=== PATIENT | female | born 1990 | race Caucasian/White ===

== ENCOUNTER 2016-09-27 09:09 | Emergency (ER) | payer OTHER ==
[~2016-09-27] VITALS: Ht 160 cm; Wt 64.9 kg
[~2016-09-27 09:09] MED LIST: ACET-1256 PO; OXYC1TAB3 PO
[2016-09-27 09:14] VITALS: TEMP 37.1; Ht 160 cm; Wt 64.9 kg
[2016-09-27] MEDS ORDERED: CEFTRIAXONE SOD INJ 1 GM ADDVIAL IV STA (09:46)
[2016-09-27] MEDS ORDERED: SODIUM CHLORIDE 0.9% 1000ML 1,000 ML IV ONE (09:46)
[2016-09-27] MEDS ORDERED: SODIUM CHLORIDE 0.9% 1000ML 1,000 ML IV STA (09:46)
--- NOTE | 2016-09-27 10:08 | EMERGENCY ROOM VISIT NOTE ---
History Report prepared by Chip: Masha Glass Under the Supervision of: Dr. Jose Ortiz M.D. First contact with patient: 09:18 Chief Complaint: URINARY SYMPTOMS Stated Complaint: UTI,KIDNEY INFECTION History of Present Illness The patient is a 26 year old female who presents to the Emergency Room with complaints of persistent urinary symptoms that began Friday. She currently rates her discomfort as a 7/10 in severity. The patient states that she has a history of UTIs, noting that she normally does not treat her infections with antibiotics and states that they normally go away on their own. She states that she started with urinary urgency and dysuria on Friday. The patient states that she noticed right flank pain last evening and states that her urinary urgency and dysuria worsened. She states that her flank pain is sharp and states that it is worsened with movement or bending over. The patient states that her pain woke her up out of sleep this morning. She states that she tried taking Ibuprofen without relief of her symptoms. The patient notes cloudy urine, but denies any hematuria. She states that she has felt feverish and notes chills. The patient notes a history of a tubal ligation and four sections. She states that she has been sexually active with the same person for the past 8 years. The patient denies any pain or swelling to her legs, chest pain, shortness of breath, or recent trauma. She states that she is a smoker. Source of History: patient, spouse/significant other Onset: Friday Position: other (global) Symptom Intensity: 7/10 Quality: other (urinary symptoms) Timing: worsening, other (persistent) Associated Symptoms: + chills, + fevers (subjective), + urinary symptoms ( dysuria, urinary urgency), No SOB, No chest pain Note: Associated Symptoms: right flank pain Review of Systems See HPI for pertinent positives & negatives. A total of 10 systems reviewed and were otherwise negative. Past Medical & Surgical Medical Problems: (1) Migraine Unspecified W/O Intractable Migraine (2) Prev Delivry W/ Or W/O Ment Antepart Cond Old medical records were reviewed. Nurse's notes were reviewed and I agree with. Family History Diabetes mellitus Heart disease Hypertension Social History Smoking Status: Current Every Day Smoker Alcohol Use: none Drug Use: none Marital Status: in relationship Housing Status: lives with family Occupation Status: unemployed Current/Historical Medications Scheduled Acetaminophen (Tylenol), 500-1,000 MG PO Q6 Cefdinir (Omnicef), 1 CAP PO BID Ibuprofen Tab (Advil), 400-600 MG PO Q6H Allergies Coded Allergies: No Known Allergies (Verified , NONE, 11/19/15) Physical Exam Vital Signs Date Time Temp Pulse Resp B/P Pulse Ox O2 Delivery O2 Flow Rate FiO2 09/27/16 13:08 87 24 106/60 100 09/27/16 12:32 78 09/27/16 12:14 83 16 94/67 100 Room Air 09/27/16 10:46 79 18 110/64 100 Room Air 09/27/16 09:14 37.1 101 18 107/64 100 Room Air Physical Exam General: Well developed well nourished, non-ill appearing, young female, in no acute distress, breathing comfortably on room air. Normal speech HEENT: Normal cephalic atraumatic. Pupils are equal round and reactive to light. Sclerae anicteric. Extraocular movements are intact. Oropharynx is pink with moist mucous membranes. No swelling of the mouth lips or tongue. Neck: Supple with a midline trachea. No meningeal signs or stiffness, no JVD or bruits. No Stridor. Chest: Clear to auscultation bilaterally. No wheezes or rhonchi. No increased work of breathing. Heart: regular rate and rhythm. Abdomen: Mild tenderness in the suprapubic area. No rebound, guarding or rigidity noted. Extremities: No cyanosis clubbing or edema. No calf tenderness or assymetry Spine/Back. Mild tenderness in the right flank. Skin: Good turgor without rashes. Neurologic exam: Cranial nerves two through 12 are intact. Motor and sensation are intact and symmetrical throughout. Medical Decision & Procedures Laboratory Results 09/27/16 09:50 Red Blood Count 4.54, Mean Corpuscular Volume 58.8, Mean Corpuscular Hemoglobin 16.1, Mean Corpuscular Hemoglobin Concent 27.3, Mean Platelet Volume 9.6, Neutrophils (%) (Auto) 70.9, Lymphocytes (%) (Auto) 17.1, Monocytes (%) (Auto) 10.7, Eosinophils (%) (Auto) 0.7, Basophils (%) (Auto) 0.5, Neutrophils # (Auto ) 5.98, Lymphocytes # (Auto) 1.44, Monocytes # (Auto) 0.90, Eosinophils # (Auto ) 0.06, Basophils # (Auto) 0.04 09/27/16 09:50 Test 09/27/16 09:40 09/27/16 09:50 Urine Color YELLOW Urine Appearance CLOUDY (CLEAR) Urine pH 7.0 (4.5-7.5) Urine Specific [place] 1.013 (1.000-1.030) Urine Protein 1+ (NEG) Urine Glucose (UA) NEG (NEG) Urine Ketones NEG (NEG) Urine Occult Blood 2+ (NEG) Urine Nitrite NEG (NEG) Urine Bilirubin NEG (NEG) Urine Urobilinogen NEG (NEG) Urine Leukocyte Esterase LARGE (NEG) Urine WBC (Auto) >30 /hpf (0-5) Urine RBC (Auto) >30 /hpf (0-4) Urine Hyaline Casts (Auto) 1-5 /lpf (0-5) Urine Epithelial Cells (Auto) >30 /lpf (0-5) Urine Bacteria (Auto) 3+ (NEG) White Blood Count 8.43 K/uL (4.8-10.8) Red Blood Count 4.54 M/uL (4.2-5.4) Hemoglobin 7.3 g/dL (12.0-16.0) Hematocrit 26.7 % (37-47) Mean Corpuscular Volume 58.8 fL (80-100) Mean Corpuscular Hemoglobin 16.1 pg (25-34) Mean Corpuscular Hemoglobin Concent 27.3 g/dl (32-36) Platelet Count 326 K/uL (130-400) Mean Platelet Volume 9.6 fL (7.4-10.4) Neutrophils (%) (Auto) 70.9 % Lymphocytes (%) (Auto) 17.1 % Monocytes (%) (Auto) 10.7 % Eosinophils (%) (Auto) 0.7 % Basophils (%) (Auto) 0.5 % Neutrophils # (Auto) 5.98 K/uL (1.4-6.5) Lymphocytes # (Auto) 1.44 K/uL (1.2-3.4) Monocytes # (Auto) 0.90 K/uL (0.11-0.59) Eosinophils # (Auto) 0.06 K/uL (0-0.5) Basophils # (Auto) 0.04 K/uL (0-0.2) RDW Standard Deviation 42.3 fL (36.4-46.3) RDW Coefficient of Variation 19.7 % (11.5-14.5) Immature Granulocyte % (Auto) 0.1 % Immature Granulocyte # (Auto) 0.01 K/uL (0.00-0.02) Hypochromasia PRESENT Poikilocytosis PRESENT Microcytosis PRESENT Anion Gap 8.0 mmol/L (3-11) Est Creatinine Clear Calc Drug Dose 115.0 ml/min Estimated GFR () 139.3 Estimated GFR (Non- 120.2 BUN/Creatinine Ratio 10.5 (10-20) Calcium Level 8.4 mg/dl (8.5-10.1) Iron Level 6 mcg/dl (35-150) Total Iron Binding Capacity 448 mcg/dl (250-450) Transferrin 322 mg/dl (200-360) Transferrin % Saturation 1 % (15-50) Ferritin 1.5 ng/ml (8.0-388.0) Human Chorionic Gonadotropin, Qual NEG (NEG) Laboratory studies as stated above per my review. Medications Administered Medications (Trade) Dose Ordered Sig/Patrick Route Start Time Stop Time Status Last Admin Dose Admin Sodium Chloride 1,000 ml @ 999 mls/hr Q1H1M STAT IV 09/27/16 09:46 09/27/16 10:46 DC 09/27/16 09:55 999 MLS/HR Sodium Chloride (Nss 1000ml) 1,000 ml @ 200 mls/hr Q5H ONCE IV 09/27/16 09:46 09/27/16 13:23 DC 09/27/16 10:46 200 MLS/HR Ceftriaxone Sodium (Rocephin Inj) 1 gm NOW STAT IV 09/27/16 09:46 09/27/16 09:49 DC 09/27/16 09:55 1 GM ED Course 0920: Past medical records reviewed. The patient was evaluated in room B11B, and a complete history and physical examination were performed by the medical student. 0938: Past medical records reviewed. The patient was evaluated in room B11B, and a complete history and physical examination were performed. 0946: Ordered Rocephin Inj 1 gm IV, Sodium Chloride 1000 ml @ 200 mls/hr IV, Sodium Chloride 1000 ml @ 999 mls/hr IV. 1121: I reevaluated the patient and she is feeling okay. Her hemoglobin is 7.1. The patient denies any rectal bleeding, declines rectal exam or being a vegetarian. She states that she has been weak and losing weight recently. 1138: I reevaluated the patient and I discussed the treatment plan with her. The [facility] hospitalist team will be consulted regarding the patient. 1209: I discussed the patients case with Rich Bourgeois. He is going to work on getting the patient follow up outside. 1219: I reevaluated the patient and she is in agreement with the treatment plan. 1235: Dr. Lagunas scheduled a follow up appointment with Rich for the patient on Friday. 1256: I reevaluated the patient and she is doing well. She is updated on the treatment plan and is in agreement. She is ready to go home and follow up on Friday. Medical Decision Differentials include, but are not limited to; UTI, pyelonephritis, appendicitis , kidney stone. This patient comes in as described above. She was placed in room B 11. She has symptoms which are consistent with UTI probably early pyelonephritis. She is nontoxic. IV access established and she was given Rocephin 1 g IV. Urinalysis does suggest UTI. She's had no white count or fever to suggest infection or sepsis. She's had no significant electrolyte or metabolic abnormalities. She was found to have a low hemoglobin 7.3 and looking back to the charge does run anemic but not this anemic. She usually is in the 8 range. She declined a rectal exam but has no history of GI bleeding. She does have a microcytic anemia most likely is iron deficient. She is not a vegetarian. She tells me does have a history of iron deficiency. She has had some mild weakness and tiredness lately but this is been non-acute. I did discuss case with Dr. Lagunas and he felt that she could be evaluated as an outpatient as is no evidence of acute bleed. I will send her home on Omnicef. They have given appointment Friday morning to be seen and Rich. I talked the patient and her fianc and they will deftly follow-up. I encouraged to return to the weekend if: fever or chills, worsening of symptoms, lightheadedness or dizziness , any new problems concerns. They're happy the plan and discharged to home. Consults Time Called: 1137 Consulting Physician: Rich Bourgeois Returned Call: 1206 I discussed the patients case with Rich Bourgeois. He is going to work on getting the patient follow up outside. Impression Primary Impression: Pyelonephritis Additional Impression: Anemia Scribe Attestation The scribe's documentation has been prepared under my direction and personally reviewed by me in its entirety. I confirm that the note above accurately reflects all work, treatment, procedures, and medical decision making performed by me. Departure Information Dispostion Home / Self-Care Prescriptions Cefdinir (OMNICEF) 300 Mg Cap 1 CAP PO BID for 10 Days, #20 CAP Prov: Jose Ortiz M.D. 09/27/16 Referrals No Doctor, Assigned (PCP) Forms HOME CARE DOCUMENTATION FORM, IMPORTANT VISIT INFORMATION Patient Instructions My [facility] Additional Instructions Rest Drink plenty of fluids Use Omnicef 300 milligrams twice a day for 10 days For pain, may use ibuprofen 400 mg every 6 hours or Tylenol/acetaminophen 500 mg every 6 hours Do not take Tylenol/acetaminophen with any other medications that contain Tylenol in them Do not exceed the [id number] recommended dosages for these meds Return if: Fever or chills, worsening symptoms, increasing pain, blood or black colored stool, lightheadedness or dizziness, any new problems concerns Follow-up with your doctor on Friday for recheck. Keep the appointment that was made for you Problem Qualifiers
[2016-09-27 10:22] LABS: BUN/CREATININE RATIO 10.5 (10-20); CALCIUM 8.4 mg/dl (8.5-10.1); CREATININE 0.66 mg/dl (0.60-1.20); POTASSIUM 3.5 mmol/L (3.5-5.1)
[2016-09-27 10:32] LABS: URINE APPEARANCE CLOUDY (CLEAR); URINE BILIRUBIN NEG (NEG); URINE COLOR YELLOW; URINE EPITHELIAL CELL AUTO >30 /lpf (0-5); URINE NITRITE NEG (NEG); URINE SPECIFIC GRAVITY 1.013 (1.000-1.030); UROBILINOGEN NEG (NEG)
[2016-09-27 10:41] LABS: MANUAL MICROSCOPIC REQUIRED? NO; REVIEW REQ? NO
[2016-09-27 10:52] LABS: BASO % 0.5 %; BASO ABS # 0.04 K/uL (0-0.2); COMPLETE YES; EOS % 0.7 %; HEMATOCRIT 26.7 % (37-47); HYPOCHROMIA PRESENT; IG% 0.1 %; LYMPH % 17.1 %; LYMPH ABS # 1.44 K/uL (1.2-3.4); MEAN CELL VOLUME 58.8 fL (80-100); MEAN CORPUSCULAR HEMOGLOBIN 16.1 pg (25-34); MEAN CORPUSCULAR HGB CONC 27.3 g/dl (32-36); MEAN PLATELET VOLUME 9.6 fL (7.4-10.4); MICROCYTOSIS PRESENT; MONO % 10.7 %; NEUT % 70.9 %; PLATELET COUNT 326 K/uL (130-400); POIKILOCYTOSIS PRESENT; RED BLOOD COUNT 4.54 M/uL (4.2-5.4); WHITE BLOOD COUNT 8.43 K/uL (4.8-10.8)
[2016-09-27 10:53] LABS: PREG INTERNAL NEGATIVE QC NEG CLEAR BACKGROUND; PREG INTERNAL POSITIVE QC POS CONTROL LINE
[2016-09-27] MEDS ORDERED: CEFD300C2 PO (12:53)
[2016-09-27 13:08] VITALS: BP 106/60; PULSE 87; O2SAT 100
[2016-09-27 13:32] LABS: FERRITIN 1.5 ng/ml (8.0-388.0)
--- NOTE | 2016-09-28 08:15 | Progress Note ---
Progress Note Case discussed with Dr. Ortiz 09/27. 26 YO female with chronic anemia, Hgb 8-9 in 2012 - 2013. Presented to ED with urinary symptoms. No fever. No signs of sepsis. Hgb noted to be 7.3. MCV 59. Fe levels very low. No gross GI bleeding or heavy menses. Does not meet criteria of transfusion at this time, but will need outpatient follow-up for further evaluation and management. Does not need to be admitted for UTI. Arrangements made for follow-up in [facility] with Dr. Call on Friday09/30/16 at 11:10 AM. .
[2017-01-26] MEDS ORDERED: FRRS300 PO (14:49)
== END 2016-09-27 13:09 | disposition home or self-care (01) ==
LOC: C.EDB 09:10
DX: N12 Tubulo-interstitial nephritis, not specified as acute or chronic (principal); D64.9 Anemia, unspecified; G43.909 Migraine, unspecified, not intractable, without status migrainosus; F17.210 Nicotine dependence, cigarettes, uncomplicated

== ENCOUNTER 2017-01-18 14:55 | Emergency (ER) | payer OTHER ==
[~2017-01-18] VITALS: Ht 157.5 cm; Wt 63.0 kg
[~2017-01-18 14:55] MED LIST changes: -OXYC1TAB3 PO
[2017-01-18 15:05] VITALS: TEMP 37.5; Ht 157.5 cm; Wt 63.0 kg
[2017-01-18] MEDS ORDERED: ACET325T96 PO (15:15)
[2017-01-18] MEDS ORDERED: PENI500T2 PO (15:30)
[2017-01-18] MEDS ORDERED: HYDR-5688 PO (15:30)
--- NOTE | 2017-01-18 15:31 | EMERGENCY ROOM VISIT NOTE ---
ED Visit Note First contact with patient: 15:14 CHIEF COMPLAINT: Left lower dental pain times one day HISTORY OF PRESENT ILLNESS: Patient is a 26-year-old white female who presents to emergency department for evaluation of left lower dental pain. She reports that she has multiple teeth that are in various states of decay. She has had multiple fillings by her dentist but they eventually fail and she has been referred to Dr. Moore in [place] for complete extraction. She has been unable to keep the appointments due to transportation and childcare issues. She reports the left lower molar in question has been decayed and cracked for some time. She states that a new piece of the tooth broke off just yesterday which caused increased pain. She notes slight swelling in the left cheek. She's been taking ibuprofen for discomfort. She denies any blood, pus or foul tasting fluid in her mouth. No difficulty breathing or swallowing. She's not been on any antibiotics for her teeth recently. He denies fever. REVIEW OF SYSTEMS: Review of systems as per HPI. All other systems reviewed were negative. At least 6 systems reviewed. PMH: Electronic medical records are reviewed and summarized as above/below. See Problem List. SOCIAL HISTORY: Patient lives at home. Smoker. PHYSICAL EXAM: Vital Signs: Reviewed Nurse's notes. CONSTITUTIONAL: Patient is a well-appearing 26-year-old white female who is awake and alert and in no acute distress. Vital signs are stable. EARS: Tympanic membranes intact, not inflamed, have normal contour. External canals clear. MOUTH: Overall the patient has poor dentition. She is status post multiple extractions. There are multiple teeth with gross dental decay and obvious dental caries. The left lower molar in question is fractured, grossly carious, with exposed pulp. It is tender to percussion. There is slight swelling along the gumline although no focal abscess. Mucous membranes moist, no lesions, tongue and gums appear normal. THROAT: No pharyngeal injection, exudates, or tonsillar hypertrophy. Airway is patent. No trismus noted. FACE: No facial swelling is appreciated. No cellulitic changes. NECK: No lymphadenopathy . ED course: The patient was seen and evaluated as above. Her old records were reviewed. She is increased dental pain from a grossly carious tooth. There is no evidence for Valdo's angina, facial cellulitis or drainable abscess. She' ll be placed on antibiotics was given a prescription for [place] for pain. She was strongly encouraged to make and keep the appointment with the oral surgeon for definitive care and management. She expressed understanding of this and was agreeable. Patient was reviewed in the [facility] Prescription Drug Monitoring Program, and there were no red flags noted. Medical Reconciliation: I attest that I have personally reviewed the patient's current medication list. Blood pressure screening: Patient was found to have normal blood pressure on screening and does not require follow-up. Problem List Medical Problems: (1) Anemia Status: Resolved (2) Chest wall injury Status: Resolved (3) Chest wall injury Status: Resolved (4) Migraine Unspecified W/O Intractable Migraine Status: Chronic (5) Odontalgia Status: Resolved (6) Pain, dental Status: Resolved (7) Pyelonephritis Status: Resolved (8) Syncope Status: Resolved (9) Upper back pain Status: Resolved Surgical Problems: (1) Prev Delivry W/ Or W/O Ment Antepart Cond Status: Resolved Current/Historical Medications Scheduled Acetaminophen Tab (Tylenol), 2-3 MG PO 4-6HRS PRN Ibuprofen Tab (Advil), 400-600 MG PO Q6H Penicillin V Potassium (Veetids), 500 MG PO QID Scheduled PRN Hydrocodone/Acetaminophen 5MG/325MG ([place] 5MG/325MG), 1-2 TABLETS PO Q4 PRN for Pain Allergies Coded Allergies: No Known Allergies (Verified , NONE, 11/19/15) Vital Signs Date Time Temp Pulse Resp B/P (MAP) Pulse Ox O2 Delivery O2 Flow Rate FiO2 01/18/17 15:05 37.5 107 18 113/74 98 Room Air Departure Information Impression Primary Impression: Periapical abscess Prescriptions Hydrocodone/Acetaminophen 5MG/325MG ([place] 5MG/325MG) Tab 1-2 TABLETS PO Q4 Y for Pain, #20 TAB For Initial Treatment Prov: Jasmyne Joseph PA 01/18/17 Penicillin V Potassium (VEETIDS) 500 Mg Tab 500 MG PO QID, #40 TAB Prov: Jasmyne Joseph PA 01/18/17 Referrals No Doctor, Assigned (PCP) Patient Instructions [facility] Additional Instructions Penicillin 500mg: Take one pill four times daily for 10 days for your dental infection. All antibiotics can cause diarrhea. If this occurs and you feel worse or it does not resolve in 1-2 days follow up with your doctor or return to the Emergency Department as this could be signs of serious underlying problems. Any medication can cause an allergic reaction, stop the pills immediately and return to the ER for rash, hives, breathing difficulties, or swelling. Ibuprofen(Motrin, Advil) may be used for fever or pain. Use 600mg every six hours as needed. Take with food. Avoid using more than 2400mg in a 24 hour period. Do not use 2400mg per day for more than three consecutive days without physician direction. Prolonged inappropriate use can lead to stomach upset or ulcers. (AND/OR) Acetaminophen(Tylenol) may be used for fever or pain. Use 1000mg every six hours as needed. Avoid using more than 4000mg in a 24 hour period. Hydrocodone/Acetaminophen ([place]) 5/325 mg: Take 1-2 pills every four hours for breakthrough pain. Avoid alcohol, operating machinery or dangerous equipment, working on ladders or roofs, DRIVING, or situations where being under the influence may be dangerous. It is recommended to use an [id number] stool softener such as Colace, 100mg twice daily while taking this medication to avoid constipation. Saltwater gargles after meals and before bedtime. Soft foods. Orajel/Anbesol/clove oil as needed for discomfort. Followup with your oral surgeon for definitive management. You may also follow up with your primary care physician for pain/care management until you can be seen by your dentist.
[2017-01-18 15:42] VITALS: BP 122/79; PULSE 104; O2SAT 99
[2017-01-18] MEDS ORDERED: IBUP-103 PO (16:56)
[2017-01-19] MEDS ORDERED: AMOX875T PO (23:20)
[2017-01-26] MEDS ORDERED: FRRS300 PO (14:49)
== END 2017-01-18 15:43 | disposition home or self-care (01) ==
LOC: C.EDB 14:56 → C.EDD 15:43
DX: K04.90 Unspecified diseases of pulp and periapical tissues (principal); D64.9 Anemia, unspecified; Z87.440 Personal history of urinary (tract) infections; Z98.890 Other specified postprocedural states; F17.200 Nicotine dependence, unspecified, uncomplicated

== ENCOUNTER 2017-01-19 20:44 | Emergency (ER) | payer OTHER ==
[~2017-01-19] VITALS: Ht 157.5 cm; Wt 53.6 kg
[~2017-01-19 20:44] MED LIST changes: +ACET325T96 PO; +HYDR-5688 PO; +IBUP-103 PO; +PENI500T2 PO
[2017-01-19 20:52] VITALS: TEMP 37.4; Ht 157.5 cm; Wt 53.6 kg
[2017-01-19] MEDS ORDERED: AMPICILLIN/SULBACTAM SOD INJ 3,000 MG in SODIUM CHLORIDE 0.9% 100ML 100 ML IV STA (21:09)
[2017-01-19] MEDS ORDERED: KETOROLAC TROMETHAMINE 30 MG/ML VIAL IV STA (21:09)
[2017-01-19] MEDS ORDERED: SODIUM CHLORIDE 0.9% 1000ML 1,000 ML IV ONE (21:15)
[2017-01-19 22:04] LABS: BUN/CREATININE RATIO 11.1 (10-20); CREATININE 0.85 mg/dl (0.60-1.20); POTASSIUM 3.6 mmol/L (3.5-5.1)
[2017-01-19 22:07] LABS: ALB/GLOB RATIO 1.1 (0.9-2)
[2017-01-19 22:11] LABS: HEMATOCRIT 23.9 % (37-47); MEAN CELL VOLUME 57.7 fL (80-100); MEAN CORPUSCULAR HEMOGLOBIN 16.4 pg (25-34); MEAN CORPUSCULAR HGB CONC 28.5 g/dl (32-36); PLATELET COUNT 232 K/uL (130-400); RED BLOOD COUNT 4.14 M/uL (4.2-5.4); WHITE BLOOD COUNT 7.11 K/uL (4.8-10.8)
[2017-01-19 22:25] LABS: BASO % 0.6 %; BASO ABS # 0.04 K/uL (0-0.2); COMPLETE YES; EOS % 0.3 %; IG% 0.1 %; LYMPH ABS # 1.49 K/uL (1.2-3.4); MICROCYTOSIS PRESENT; MONO % 11.4 %; NEUT % 66.6 %; OVALOCYTES 1+
[2017-01-19 22:37] LABS: CALCIUM 8.5 mg/dl (8.5-10.1)
[2017-01-19] MEDS ORDERED: AMOX875T PO (23:20)
[2017-01-19 23:28] VITALS: BP 126/70; PULSE 78; O2SAT 98
--- NOTE | 2017-01-20 15:36 | EMERGENCY ROOM VISIT NOTE ---
History First contact with patient: 20:57 Chief Complaint: DENTAL PAIN Stated Complaint: INFECTED TOOTH Nursing Triage Summary: pt co left sided dental pain with worstening pain and swelling. pt alert and oriented x4. History of Present Illness The patient is a 26 year old female who presents to the Emergency Room with complaints of left-sided facial swelling worsening over the past one day. The patient was seen and evaluated yesterday in this facility for a dental infection. She was started on Pen-Vee K and Vicodin. The patient has reportedly taken the medication as prescribed, but states that she has had distinct worsening of her symptoms throughout the course of today. The patient has not had a fever at home, but she is taking ibuprofen as well as Vicodin. She has not had drainage or discharge into her mouth. She does have some pain that radiates to her left ear. She rates her overall discomfort a 9/10. Review of Systems More than 10 systems were reviewed and otherwise negative with the exception of history of present illness. Past Medical/Surgical History Medical Problems: (1) Anemia (2) Chest wall injury (3) Chest wall injury (4) Migraine Unspecified W/O Intractable Migraine (5) Odontalgia (6) Pain, dental (7) Pyelonephritis (8) Syncope (9) Upper back pain Surgical Problems: (1) Prev Delivry W/ Or W/O Ment Antepart Cond Family History Diabetes mellitus Heart disease Hypertension Social History Smoking Status: Current Every Day Smoker Alcohol Use: none Drug Use: none Marital Status: in relationship Housing Status: lives with family Occupation Status: unemployed Current/Historical Medications Scheduled Amoxicillin & Pot Clavulanate (Augmentin 875-125 mg), 1 TAB PO BID Penicillin V Potassium (Veetids), 500 MG PO QID Scheduled PRN Hydrocodone/Acetaminophen 5MG/325MG ([place] 5MG/325MG), 1-2 TABLETS PO Q4 PRN for Pain Allergies Coded Allergies: No Known Allergies (Verified , NONE, 11/19/15) Physical Exam Vital Signs Date Time Temp Pulse Resp B/P (MAP) Pulse Ox O2 Delivery O2 Flow Rate FiO2 01/19/17 23:28 78 20 126/70 98 01/19/17 22:07 86 16 121/83 100 Room Air 01/19/17 20:52 37.4 115 18 122/83 100 Room Air Pain Rating (0-10): 0 Physical Exam VITALS: Vitals are noted on the nurse's note and reviewed by myself. Vital signs stable. GENERAL: Well-developed, well-nourished, white female, who is in no acute distress and resting comfortably. Patient is cooperative with the examination. MOUTH: Mucous membranes moist. Tonsils are not enlarged. Pharynx without erythema, blood, or exudate. Uvula midline. Airway patent. Patient has overall poor dentition. The left lower molar is partially fractured and quite carious with pulp exposure. The gumline in this region is quite tender without obvious abscess. The patient does have visually appreciable swelling along the left side of her mandible NECK: Supple without nuchal rigidity. No lymphadenopathy. No thyromegaly. Cervical spine is nontender. HEART: Regular rate and rhythm without murmurs gallops or rubs. LUNGS: Clear to auscultation bilaterally without wheezes, rales or rhonchi. No retractions or accessory muscle use. Medical Decision & Procedures Laboratory Results 01/19/17 21:30 Red Blood Count 4.14, Mean Corpuscular Volume 57.7, Mean Corpuscular Hemoglobin 16.4, Mean Corpuscular Hemoglobin Concent 28.5, Mean Platelet Volume 9.0, Neutrophils (%) (Auto) 66.6, Lymphocytes (%) (Auto) 21.0, Monocytes (%) (Auto) 11.4, Eosinophils (%) (Auto) 0.3, Basophils (%) (Auto) 0.6, Neutrophils # (Auto ) 4.74, Lymphocytes # (Auto) 1.49, Monocytes # (Auto) 0.81, Eosinophils # (Auto ) 0.02, Basophils # (Auto) 0.04 01/19/17 21:30 Test 01/19/17 21:30 01/19/17 21:37 White Blood Count 7.11 K/uL (4.8-10.8) Red Blood Count 4.14 M/uL (4.2-5.4) Hemoglobin 6.8 g/dL (12.0-16.0) Hematocrit 23.9 % (37-47) Mean Corpuscular Volume 57.7 fL (80-100) Mean Corpuscular Hemoglobin 16.4 pg (25-34) Mean Corpuscular Hemoglobin Concent 28.5 g/dl (32-36) Platelet Count 232 K/uL (130-400) Mean Platelet Volume 9.0 fL (7.4-10.4) Neutrophils (%) (Auto) 66.6 % Lymphocytes (%) (Auto) 21.0 % Monocytes (%) (Auto) 11.4 % Eosinophils (%) (Auto) 0.3 % Basophils (%) (Auto) 0.6 % Neutrophils # (Auto) 4.74 K/uL (1.4-6.5) Lymphocytes # (Auto) 1.49 K/uL (1.2-3.4) Monocytes # (Auto) 0.81 K/uL (0.11-0.59) Eosinophils # (Auto) 0.02 K/uL (0-0.5) Basophils # (Auto) 0.04 K/uL (0-0.2) RDW Standard Deviation 40.8 fL (36.4-46.3) RDW Coefficient of Variation 19.1 % (11.5-14.5) Immature Granulocyte % (Auto) 0.1 % Immature Granulocyte # (Auto) 0.01 K/uL (0.00-0.02) Microcytosis PRESENT Ovalocytes 1+ Anion Gap 11.0 mmol/L (3-11) Est Creatinine Clear Calc Drug Dose 78.0 ml/min Estimated GFR () 108.1 Estimated GFR (Non- 93.2 BUN/Creatinine Ratio 11.1 (10-20) Calcium Level 8.5 mg/dl (8.5-10.1) Total Bilirubin 0.3 mg/dl (0.2-1) Aspartate Amino Transf (AST/SGOT) 14 U/L (15-37) Alanine Aminotransferase (ALT/SGPT) 16 U/L (12-78) Alkaline Phosphatase 66 U/L (45-117) Total Protein 7.3 gm/dl (6.4-8.2) Albumin 3.8 gm/dl (3.4-5.0) Globulin 3.5 gm/dl (2.5-4.0) Albumin/Globulin Ratio 1.1 (0.9-2) Bedside Lactic Acid Venous 0.63 mmol/L (0.90-1.70) Medications Administered Medications (Trade) Dose Ordered Sig/Patrick Route Start Time Stop Time Status Last Admin Dose Admin Ketorolac Tromethamine (Toradol Inj) 30 mg NOW STAT IV 01/19/17 21:09 01/19/17 21:11 DC 01/19/17 22:01 30 MG Ampicillin Sodium/ Sulbactam Sodium 3000 mg/Sodium Chloride 108 ml @ 200 mls/hr NOW STAT IV 01/19/17 21:09 01/19/17 21:41 DC 01/19/17 22:01 200 MLS/HR Sodium Chloride 1,000 ml @ 999 mls/hr Q1H1M ONCE IV 01/19/17 21:15 01/19/17 22:15 DC 01/19/17 22:02 999 MLS/HR ED Course Physical exam and history were performed. Nursing notes and EMR were reviewed. Patient appears to have a dental infection that is worsening over the past 24 hours. She has reportedly been taking the PenVK as prescribed, but has yet to have improvement of her symptoms. She is now experiencing some left-sided facial swelling, prompting her concern. On initial vital signs she did have some tachycardia. She has been taking Tylenol and Motrin products, and has not been reporting any fever. I did elect to establish an IV and checked blood work. She is medicated here in the department with 30 mg IV Toradol as well as IV Unasyn. CT imaging was considered but not felt necessary as she has minimal swelling. The patient's blood work is as above and was reviewed. She does not have a significantly elevated white blood cell count or gross electrolyte imbalance. The patient is quite anemic at 6.8. Lactic acid 1 is negative. Blood cultures 2 are pending. On reevaluation the patient was able to sleep comfortably in her emergency department bed. She felt much better after the IV Toradol. I had a lengthy discussion with the patient regarding her anemia. She states this has been ongoing for several months, and was initially identified here in this department in September, 4 months ago. She has had several visits with her PCP, and is essentially having blood work taken once weekly. She started on iron supplement within the past 2 weeks, and states that she otherwise feels at her normal baseline. She does not feel weak or dizzy. She is without active bleed at this time. She does not feel like she requires a transfusion, and she certainly does not wish to be admitted to the facility for her anemia. Overall the patient appears stable for discharge home. I will transition her to Augmentin. She is to continue the Vicodin as previously prescribed. She must follow with a dentist for definitive care. I also recommended that she follow up with her PCP on a short interval for a recheck on her anemia. The patient was otherwise fairly invited back to the ER with any new, worsening, or concerning symptoms. She voiced understanding and rated her discomfort a 1/10 at the time of departure. The chart was completed utilizing [employer] Speech Voice Recognition Software. Grammatical errors, random word insertions, pronoun errors, and incomplete sentences are an occasional consequence of this system due to software limitations, ambient noise, and hardware issues. Any formal questions or concerns about the content, text, or information contained within the body of this dictation should be directly addressed to the provider for clarification. . Medical Decision Differential diagnosis includes, but is not limited to: Infection, dental pain, abscess, cellulitis, sepsis, anemia, and others Impression Primary Impression: Periapical abscess Additional Impression: Anemia Departure Information Dispostion Home / Self-Care Condition GOOD Prescriptions Amoxicillin & Pot Clavulanate (Augmentin 875-125 mg) 1 Tab Tab 1 TAB PO BID for 9 Days, #18 TAB Prov: Juan C Martinez PA-C 01/19/17 Referrals No Doctor, Assigned (PCP) Forms HOME CARE DOCUMENTATION FORM, IMPORTANT VISIT INFORMATION Patient Instructions My [facility] Additional Instructions You were seen and evaluated today on an emergency basis only. This is not a substitute for, or an effort to provide, complete comprehensive medical care. It is not possible to recognize and treat all injuries or illnesses in a single emergency department visit. For this reason it is recommended that you followup with a dentist as soon as possible regarding her dental pain. We strongly recommended you follow-up with your primary care physician this week regarding your anemia. Continue your iron supplements. Discontinue penicillin. Begin Augmentin. Amoxicillin Clavulanate (Augmentin) 875mg: Take one pill twice daily for your infection. All antibiotics can cause diarrhea. If this occurs and you feel worse or it does not resolve in 1-2 days follow up with your doctor or return to the Emergency Department as this could be signs of serious underlying problems. Any medication can cause an allergic reaction, stop the pills immediately and return to the ER for rash, hives, breathing difficulties, or swelling. You are welcome to return to the emergency department anytime with new, worsening, or concerning symptoms. Problem Qualifiers
[2017-01-26] MEDS ORDERED: FRRS300 PO (14:49)
== END 2017-01-19 23:29 | disposition home or self-care (01) ==
LOC: C.EDB 20:44 → C.EDD 23:29
DX: K04.7 Periapical abscess without sinus (principal); D64.9 Anemia, unspecified; S02.5XXA Fracture of tooth (traumatic), initial encounter for closed fracture; X58.XXXA Exposure to other specified factors, initial encounter; K02.9 Dental caries, unspecified; F17.200 Nicotine dependence, unspecified, uncomplicated; Z98.891 History of uterine scar from previous surgery; Z83.3 Family history of diabetes mellitus; Z82.49 Family history of ischemic heart disease and other diseases of the circulatory system

== ENCOUNTER 2017-01-25 18:56 | Inpatient (IN) | payer OTHER ==
[~2017-01-25] VITALS: Ht 160 cm; Wt 62.9 kg
[~2017-01-25 18:56] MED LIST changes: -ACET-1256 PO; -ACET325T96 PO; +AMOX875T PO; -IBUP-103 PO
[2017-01-25 18:59] VITALS: Ht 160 cm; Wt 62.9 kg
[2017-01-25] MEDS ORDERED: ONDANSETRON INJ 2 MG/ML 2 ML VIAL IV STA (19:10)
[2017-01-25] MEDS ORDERED: MoRPHine SULFATE 4 MG/ML 1 ML CARP\\VIAL IV STA (19:10)
[2017-01-25 19:56] LABS: HEMATOCRIT 24.1 % (37-47); MEAN CELL VOLUME 57.7 fL (80-100); MEAN CORPUSCULAR HGB CONC 27.8 g/dl (32-36); PLATELET COUNT 200 K/uL (130-400); RED BLOOD COUNT 4.18 M/uL (4.2-5.4); WHITE BLOOD COUNT 5.56 K/uL (4.8-10.8)
[2017-01-25 19:58] LABS: URINE APPEARANCE CLOUDY (CLEAR); URINE BILIRUBIN NEG (NEG); URINE COLOR YELLOW; URINE EPITHELIAL CELL AUTO >30 /lpf (0-5); URINE NITRITE NEG (NEG); URINE SPECIFIC GRAVITY 1.021 (1.000-1.030); UROBILINOGEN NEG (NEG)
[2017-01-25 20:04] LABS: MANUAL MICROSCOPIC REQUIRED? NO; REVIEW REQ? YES
[2017-01-25 20:05] LABS: ALT/SGPT 20 U/L (12-78); AST/SGOT 11 U/L (15-37); BLOOD UREA NITROGEN 8 mg/dl (7-18); BUN/CREATININE RATIO 11.3 (10-20); CALCIUM 8.2 mg/dl (8.5-10.1); CARBON DIOXIDE 21 mmol/L (21-32); CHLORIDE 112 mmol/L (98-107); CREATININE 0.71 mg/dl (0.60-1.20); GLUCOSE 85 mg/dl (70-99); POTASSIUM 3.5 mmol/L (3.5-5.1); SODIUM 142 mmol/L (136-145)
[2017-01-25 20:08] LABS: ALKALINE PHOSPHATASE 65 U/L (45-117)
[2017-01-25 20:30] LABS: COMPLETE YES; GIANT PLATELETS 1+; HYPOCHROMIA PRESENT; LYMPH ABS # 1.26 K/uL (1.2-3.4); LYMPHOCYTE % 22.6 %; MICROCYTOSIS PRESENT; NEUTROPHILS % 72.2 %
[2017-01-25] MEDS ORDERED: OPTIRAY 320 IV PRN (22:00)
--- NOTE | 2017-01-25 22:09 | DIAGNOSTIC IMAGING REPORT ---
ABDOMEN AND PELVIS CT WITH IV AND ORAL CONTRAST CT DOSE: 286.96 mGy.cm HISTORY: Flank pain RLQ pain eval for raeli TECHNIQUE: Multiaxial CT images of the abdomen and pelvis were performed following the use of intravenous and oral contrast. COMPARISON STUDY: None. FINDINGS: The lung bases are clear. The liver, spleen, gallbladder, pancreas, kidneys, and adrenal glands are within normal limits. No bowel wall thickening or obstruction. The appendix is identified medial to the cecum. It measures 5.5 mm. It is partially air containing. There is an additional tubular structure immediately adjacent to a 3.3 cm right ovarian cyst. This potentially relates to a loop of small bowel versus a distended uterine tube. Small amount of free fluid within the pelvic cul-de-sac. Uterus is anteflexed. IMPRESSION: 1. Study is negative for appendicitis. 2. 3.3 cm right ovarian cyst with a small to moderate amount of free fluid within the pelvic cul-de-sac. 3. This may indicate a partial cyst rupture. 4. Fluid-filled partially effaced loop of terminal ileum adjacent to the cyst versus the less likely possibility of a distended uterine tube. 5. If symptoms persists, pelvic ultrasound would be of assistance to exclude any possibility of hydrosalpinx. Electronically signed by: Phillip Marti M.D. 01/25/2017 10:08 PM Dictated Date/Time: 01/25/2017 10:01 PM
--- NOTE | 2017-01-25 22:25 | EMERGENCY ROOM VISIT NOTE ---
History Report prepared by Chip: Rosanne Mccoy Under the Supervision of: Dr. Kale Woods M.D. First contact with patient: 19:03 Chief Complaint: ABDOMINAL PAIN Stated Complaint: APPENDIX PAIN History of Present Illness The patient is a 26 year old female who presents to the Emergency Room with complaints of worsening lower abdominal pain since last night. The patient was recently in the ED for a dental abscess and she was placed on Augmentin. She was told that this could upset her stomach, so when her pain started yesterday she thought that it was due to the antibiotics. She stopped taking the antibiotics yesterday, but her pain has continued to worsen. It is worse in her RLQ. The patient describes her pain as sharp and rates it as a 4/10 in severity. Eating does not seem to affect her pain. She says it briefly makes it worse but then doesn't seem to have an effect. She denies nausea, fever, diarrhea, dysuria, chance of , and any abnormal vaginal bleeding or discharge. She states that this does not feel like her previous UTIs. Source of History: patient Onset: yesterday Position: abdomen (RLQ) Symptom Intensity: 4/10 Quality: sharp Timing: worsening Modifying Factors (Relieving): other (none) Associated Symptoms: No fevers, No nausea, No diarrhea, No urinary symptoms Review of Systems See HPI for pertinent positives & negatives. A total of 10 systems reviewed and were otherwise negative. Past Medical & Surgical Medical Problems: (1) Anemia (2) Chest wall injury (3) Chest wall injury (4) Migraine Unspecified W/O Intractable Migraine (5) Odontalgia (6) Pain, dental (7) Pyelonephritis (8) Syncope (9) Upper back pain Surgical Problems: (1) Prev Delivry W/ Or W/O Ment Antepart Cond Family History Diabetes mellitus Heart disease Hypertension Social History Smoking Status: Current Every Day Smoker Alcohol Use: none Drug Use: none Marital Status: in relationship Housing Status: lives with family Occupation Status: unemployed Current/Historical Medications Scheduled PRN Hydrocodone/Acetaminophen 5MG/325MG ([place] 5MG/325MG), 1-2 TABLETS PO Q4 PRN for Pain Allergies Coded Allergies: No Known Allergies (Verified , NONE, 11/19/15) Physical Exam Vital Signs Date Time Temp Pulse Resp B/P (MAP) Pulse Ox O2 Delivery O2 Flow Rate FiO2 01/25/17 21:55 84 18 110/63 100 Room Air 01/25/17 18:59 36.8 104 18 102/59 99 Room Air Physical Exam Constitutional: Vital signs reviewed. Eyes: Pupils are equal round reactive to light. Conjunctiva are noninjected. ENT: Pharynx is clear without erythema or exudate. She has a left mandibular pre -molar fractured without signs of infection. Mucous membranes are moist. Neck supple without meningeal signs. Respiratory: Clear to auscultation bilaterally. Breath sounds are equal bilaterally. Cardiovascular: Regular rate and rhythm. No rubs or gallops. GI: Soft, nondistended. RLQ tenderness, no CVA tenderness. Bowel sounds are present. Musculoskeletal: No peripheral edema. No lower extremity tenderness. Integumentary: No cyanosis. Neurological: The patient is awake and alert. No focal deficits. Psychiatric: Normal affect. Medical Decision & Procedures ER Provider Diagnostic Interpretation: Radiology results as stated below per my review and the radiologist's interpretation: ABDOMEN AND PELVIS CT WITH IV AND ORAL CONTRAST CT DOSE: 286.96 mGy.cm HISTORY: Flank pain RLQ pain eval for areli TECHNIQUE: Multiaxial CT images of the abdomen and pelvis were performed following the use of intravenous and oral contrast. COMPARISON STUDY: None. FINDINGS: The lung bases are clear. The liver, spleen, gallbladder, pancreas, kidneys, and adrenal glands are within normal limits. No bowel wall thickening or obstruction. The appendix is identified medial to the cecum. It measures 5.5 mm. It is partially air containing. There is an additional tubular structure immediately adjacent to a 3.3 cm right ovarian cyst. This potentially relates to a loop of small bowel versus a distended uterine tube. Small amount of free fluid within the pelvic cul-de-sac. Uterus is anteflexed. IMPRESSION: 1. Study is negative for appendicitis. 2. 3.3 cm right ovarian cyst with a small to moderate amount of free fluid within the pelvic cul-de-sac. 3. This may indicate a partial cyst rupture. 4. Fluid-filled partially effaced loop of terminal ileum adjacent to the cyst versus the less likely possibility of a distended uterine tube. 5. If symptoms persists, pelvic ultrasound would be of assistance to exclude any possibility of hydrosalpinx. Electronically signed by: Phillip Marti M.D. 01/25/2017 10:08 PM Dictated Date/Time: 01/25/2017 10:01 PM Laboratory Results 01/25/17 19:23 Red Blood Count 4.18, Mean Corpuscular Volume 57.7, Mean Corpuscular Hemoglobin 16.0, Mean Corpuscular Hemoglobin Concent 27.8 01/25/17 19:23 Test 01/25/17 19:23 01/25/17 19:30 01/25/17 22:19 White Blood Count 5.56 K/uL (4.8-10.8) Red Blood Count 4.18 M/uL (4.2-5.4) Hemoglobin 6.7 g/dL (12.0-16.0) Hematocrit 24.1 % (37-47) Mean Corpuscular Volume 57.7 fL (80-100) Mean Corpuscular Hemoglobin 16.0 pg (25-34) Mean Corpuscular Hemoglobin Concent 27.8 g/dl (32-36) Platelet Count 200 K/uL (130-400) RDW Standard Deviation 41.8 fL (36.4-46.3) RDW Coefficient of Variation 19.7 % (11.5-14.5) Neutrophils % (Manual) 72.2 % Lymphocytes % (Manual) 22.6 % Monocytes % (Manual) 5.2 % Neutrophils # (Manual) 4.01 K/uL (1.4-6.5) Total Absolute Neutrophils 4.01 K/uL (1.4-6.5) Lymphocytes # (Manual) 1.26 K/uL (1.2-3.4) Total Absolute Lymphocytes 1.26 K/uL (1.2-3.4) Monocytes # (Manual) 0.29 K/uL (0.11-0.59) Giant Platelets 1+ Hypochromasia PRESENT Microcytosis PRESENT Anion Gap 9.0 mmol/L (3-11) Est Creatinine Clear Calc Drug Dose 105.4 ml/min Estimated GFR () 134.3 Estimated GFR (Non- 115.9 BUN/Creatinine Ratio 11.3 (10-20) Calcium Level 8.2 mg/dl (8.5-10.1) Total Bilirubin 0.2 mg/dl (0.2-1) Direct Bilirubin < 0.1 mg/dl (0-0.2) Aspartate Amino Transf (AST/SGOT) 11 U/L (15-37) Alanine Aminotransferase (ALT/SGPT) 20 U/L (12-78) Alkaline Phosphatase 65 U/L (45-117) Total Protein 7.2 gm/dl (6.4-8.2) Albumin 3.5 gm/dl (3.4-5.0) Lipase 127 U/L (73-393) Urine Color YELLOW Urine Appearance CLOUDY (CLEAR) Urine pH 5.0 (4.5-7.5) Urine Specific [place] 1.021 (1.000-1.030) Urine Protein NEG (NEG) Urine Glucose (UA) NEG (NEG) Urine Ketones NEG (NEG) Urine Occult Blood NEG (NEG) Urine Nitrite NEG (NEG) Urine Bilirubin NEG (NEG) Urine Urobilinogen NEG (NEG) Urine Leukocyte Esterase MODERATE (NEG) Urine WBC (Auto) >30 /hpf (0-5) Urine RBC (Auto) 0-4 /hpf (0-4) Urine Hyaline Casts (Auto) 1-5 /lpf (0-5) Urine Epithelial Cells (Auto) >30 /lpf (0-5) Urine Bacteria (Auto) 2+ (NEG) Urine Pathogenic Casts /lpf (0) Urine Yeast (Auto) BUD W/ HYPHAE (NONE PRSENT) Urine Test NEG (NEG) Laboratory results as reviewed by me. Medications Administered Medications (Trade) Dose Ordered Sig/Patrick Route Start Time Stop Time Status Last Admin Dose Admin Morphine Sulfate (MoRPHine SULFATE INJ) 4 mg ONE STAT IV 01/25/17 19:10 01/25/17 19:12 DC 01/25/17 19:39 4 MG Ondansetron HCl (Zofran Inj) 4 mg NOW STAT IV 01/25/17 19:10 01/25/17 19:12 DC 01/25/17 19:38 4 MG ED Course 1902: The patient was evaluated in room C6. A complete history and physical exam was performed. 1909: Zofran 4 mg IV, Morphine sulfate 4 mg IV 1956: I reassessed the patient. Her hemoglobin is 6.7 and states that it normally runs around 7. It was 6.8 recently. She is on iron for this and states that she has had it for at least two years. She denies feeling lightheaded or weak. I did a bedside ultrasound. 2012: I spoke with the patient again. She said again that the anemia has been going on for at least two years. She had a transfusion after she gave . She has had multiple tests, but she has never seen a lumite injector. I discussed a potential transfusion and the risks and benefits with the patient. 2035: I obtained consent for transfusion. 2213: I reassessed the patient at this time. She is resting comfortably. She declined a pelvic exam. I discussed the results and treatment plan with the patient. I answered all pertaining questions that she had. She expressed understanding and verbalized agreement. 2216: I spoke with Dr. Collins. We discussed the patient's results and treatment plan. [facility] Medical Decision This is a 26-year-old female who presents with abdominal pain. Differential diagnosis includes acute appendicitis, abscess, perforation, ectopic , ovarian cyst. I did perform a limited focused review of portions of the patient 's old chart on the electronic medical record. The patient was here January 19 for periapical abscess and was discharged on Augmentin and Vicodin. Medication Reconciliation: I attest that I have personally reviewed the patient' s current medication list. Blood Pressure Screening: Patient was found to have normal blood pressure on screening and does not require follow-up. I did evaluate the patient as noted above. She is presenting with right-sided abdominal pain with tenderness. She is concerned about acute appendicitis. IV access was established. I did treat the patient with IV morphine and Zofran. I did order and review the patient's urinalysis as described above. Urine test was negative. I did order and review the patient's blood work as noted in the electronic medical record. She is severely anemic with a hemoglobin of 6.7. There was 6.8 just 6 days ago. She does state she has a history of anemia since at least when her son was born 2 years ago. She did require transfusion at that time. I did perform a limited bedside ultrasound which did not show fluid in Morison's pouch. There was questionable fluid in the suprapubic view. I did order a type and cross for 2 units of packed red blood cells after obtaining verbal and written consent from the patient. I did order a CT of the abdomen and pelvis. I did review the images myself as well as the radiology report as described above. She does not have appendicitis. She does appear to have a ruptured ovarian cyst. I did discuss the test results with the patient. I did recommend hospitalization for transfusion and recheck of her hemoglobin. I did discuss the case with the hospitalist and employment case manager. Consults Time Called: 2216 Consulting Physician: Dr. Collins Returned Call: [phone] Collins. We discussed the patient's results and treatment plan. The patient will be evaluated by the [facility] for further management. Impression Primary Impression: Severe anemia Additional Impression: Ruptured ovarian cyst Scribe Attestation The scribe's documentation has been prepared under my direct and personally reviewed by me in its entirety. I confirm that the note above accurately reflects all work, treatment, procedures, and medical decision making performed by me. Departure Information Dispostion Being Evaluated By Hospitalist Referrals No Doctor, Assigned (PCP) Patient Instructions My [facility] Problem Qualifiers
[2017-01-25 22:33] VITALS: BP 113/60; PULSE 89; TEMP 37; O2SAT 100
[2017-01-25 22:37] LABS: PROTHROMBIN TIME (PATIENT) 11.2 SECONDS (9.0-12.0)
[2017-01-25 22:50] VITALS: BP 119/62; PULSE 80; TEMP 37.1; O2SAT 100
[2017-01-25 23:20] VITALS: BP 106/61; PULSE 74; TEMP 37; O2SAT 98
[2017-01-25] MEDS ORDERED: ACETAMINOPHEN 325 MG TAB PO PRN (23:30)
[2017-01-25] MEDS ORDERED: HYDROCODONE/ACETAMOPHEN 5/325MG TAB PO PRN (23:30)
[2017-01-25] MEDS ORDERED: IBUPROFEN 200 MG TAB PO PRN (23:30)
[2017-01-25] MEDS ORDERED: hydrOXYzine HCL 10 MG TAB PO PRN (23:30)
[2017-01-25] MEDS ORDERED: MoRPHine SULFATE 4 MG/ML 1 ML CARP\\VIAL IV PRN (23:30)
[2017-01-25] MEDS ORDERED: KETOROLAC TROMETHAMINE 15 MG/ML VIAL IV. PRN (23:30)
[2017-01-25] MEDS ORDERED: ONDANSETRON INJ 2 MG/ML 2 ML VIAL IV PRN (23:30)
[2017-01-26 00:30] VITALS: BP 119/82; PULSE 71; TEMP 36.8; O2SAT 100
[2017-01-26] MEDS ORDERED: LACTATED RINGER'S 1000ML 1,000 ML IV ONE (04:15)
[2017-01-26 05:45] VITALS: BP_SYST 111; BP_SYST 126; BP_SYST 134; BP_DIAS 70; BP_DIAS 86; BP_DIAS 90; PULSE 101; PULSE 78
--- NOTE | 2017-01-26 06:45 | HISTORY & PHYSICAL EXAMINATION ---
DATE OF ADMISSION: 01/25/2017 PRIMARY CARE DOCTOR: Dr. Shanique Call CHIEF COMPLAINT: Right flank pain. HISTORY OF PRESENT ILLNESS: Hx obtained from px and records. Medical history is significant for chronic iron deficiency anemia (baseline Hg 7 -8), mood disorder and ongoing tobacco abuse. Patient known to anemic for years now. Admits to erratic compliance with home iron prescription. Yesterday, the patient noted right lower quadrant pain, achy and some nausea. No vomiting. Good bowel movement. No fever, no chills, different from UTI symptoms. No black, no bloody stools. Usual menstrual patterns. Patient admits to some weakness with exertion for a few months now. Episodic lightheadedness as she is going to pass out. No cp, no sob. At the Emergency Room, hemoglobin was noted to be 6.7. Patient received one unit of packed RBC. MEDICAL HISTORY: As above. SURGERIES: Tonsillectomy, adenectomy, gynecologic procedures and bilateral tubal ligation. HOME MEDICATIONS: The patient on an antibiotic course for dental infection and Vicodin. ALLERGIES: No drug allergies. FAMILY HISTORY: Anemia, diabetes and hypertension. PERSONAL AND SOCIAL HISTORY: Half pack daily. No chronic intake of alcoholic beverages. Homemaker. REVIEW OF SYSTEMS: As per HPI. all other ROS negative PHYSICAL EXAMINATION: GENERAL: Slightly anxious, in no acute distress, looks older for stated age VITAL SIGNS: Blood pressure was noted to be 110/60, pulse rate 84, RR 18, temperature 36.7 and sats 100 on room air. SKIN: Pallor. HEENT: Pale palpebral conjunctivae. Dry mucosa. NECK: No JVD. Supple CHEST: Clear to auscultation. HEART: Regular rate and rhythm. ABDOMEN: Tenderness in the right lower quadrant. RECTAL: Intact sphincter, yellow stool, heme negative. EXTREMITIES: No edema. no tenderness NEUROLOGIC: No gross focality. LABORATORIES: Hemoglobin was noted to be 6.7, hematocrit 24 white cell count 5.5 and platelets 200. Sodium 140 chloride 112, CO2 21, BUN 8 crea 0.7 glucose was noted to be 85. UA WBC esterase, epith cells CAT scan of the abdomen and pelvis : no appendicitis 3.3 cm right ovarian cyst with a small to moderate amount of free fluid within the pelvic cul-de-sac poss partial cyst rupture. Fluid-filled partially effaced loop of terminal ileum adjacent to the cyst versus the less likely possibility of a distended uterine tube. If symptoms persists, pelvic ultrasound would be of assistance to exclude any possibility of hydrosalpinx. ASSESSMENT: 1. Symptomatic anemia slow decrease from baseline hemoglobin of 7-8 no overt blood loss 2. right lower quadrant pain possibly from ruptured ovarian cyst 3. ongoing tobacco abuse. 4. asymptomatic pyuria PLAN: GMF Transfuse pRBC to maintain Hg >7 anemia workup. Iron supplement. Pelvic ultrasound and Gynecology consult RE R pelvic pain, abnormal CT. NSAIDs for pain. Nicotine patch. DVT prophylaxis, SCDs. Full code. MTDD
--- NOTE | 2017-01-26 07:38 | DIAGNOSTIC IMAGING REPORT ---
PELVIC ULTRASOUND, TRANSABDOMINAL AND TRANSVAGINAL HISTORY: Right-sided pelvic pain. Abnormal CT. COMPARISON: Abdomen and pelvis CT 01/25/2017. FINDINGS: Uterus: No masses. Endometrial stripe: Thickened and heterogeneous measuring up to 2 cm. Right ovary: Normal color flow. The right ovary contains a 3.9 cm complex cyst. This corresponds to the CT abnormality. Left ovary: Normal in size and demonstrates normal color flow. Miscellaneous:Small amount of pelvic free fluid. IMPRESSION: 1. Thickened and heterogeneous endometrium measuring up to 2 cm. 6-8 week pelvic ultrasound follow-up is recommended to ensure resolution. 2. A 3.9 cm complex cyst within the right ovary. This favors a hemorrhagic cyst. This also bears watching on future examinations. 3. Small amount of pelvic free fluid. Electronically signed by: Erick Barrera M.D. 01/26/2017 7:37 AM Dictated Date/Time: 01/26/2017 7:34 AM
[2017-01-26] MEDS: FERROUS SULFATE 325 MG TAB PO SCH ×2 (07:48→12:30)
[2017-01-26 07:51] VITALS: BP 97/61; PULSE 70; TEMP 36.8; O2SAT 99
[2017-01-26 08:00] VITALS: O2SAT 99
[2017-01-26] MEDS ORDERED: NICOTINE 14 MG/24 HR TDSY TD SCH (08:00)
[2017-01-26 08:39] LABS: FERRITIN 3.6 ng/ml (8.0-388.0)
[2017-01-26 08:51] LABS: HEMATOCRIT 25.8 % (37-47); MEAN CELL VOLUME 60.4 fL (80-100); MEAN CORPUSCULAR HEMOGLOBIN 17.1 pg (25-34); MEAN CORPUSCULAR HGB CONC 28.3 g/dl (32-36); RED BLOOD COUNT 4.27 M/uL (4.2-5.4); WHITE BLOOD COUNT 9.07 K/uL (4.8-10.8)
[2017-01-26 08:52] LABS: ANISOCYTOSIS PRESENT; BASO % 0.3 %; BASO ABS # 0.03 K/uL (0-0.2); COMPLETE YES; EOS % 1.2 %; IG% 0.2 %; LYMPH % 22.2 %; LYMPH ABS # 2.01 K/uL (1.2-3.4); MICROCYTOSIS PRESENT; MONO % 7.7 %; NEUT % 68.4 %; PLATELET COUNT 172 K/uL (130-400); POIKILOCYTOSIS PRESENT
[2017-01-26 12:40] LABS: HEMATOCRIT 25.5 % (37-47)
[2017-01-26] MEDS ORDERED: FRRS300 PO (14:49)
--- NOTE | 2017-01-26 14:51 | Discharge Instructions ---
Discharge Instructions Date of Service Jan 26, 2017. Admission Reason for Admission: Symptomatic Anemia Discharge Discharge Diagnosis / Problem: RT SIDED RUPTURED OVARIAN CYST /SYMPTOMATIC ANEMIA Discharge Goals Goal(s): Improve disease control, Diagnostic testing, Therapeutic intervention Activity Recommendations Activity Limitations: resume your previous activity . Instructions / Follow-Up Instructions / Follow-Up HOSPITAL FOLLOW UP 01/29/2017 @ 1:[address] Shanique Call MD General Internal Medicine [facility] LAB WORK : CBC ON 01/29/17 PLEASE FOLLOW UP WITH FLIGHT PHYSICIAN IN 2-3 WEEKS TAKE IRON SUPPLEMENT PRESCRIBED TAKE OVER THE COUNTER STOOL SOFTENER TO PREVENT CONSTIPATION WHILE TAKING IRON SUPPLEMENT Current Hospital Diet Patient's current hospital diet: Regular Diet Discharge Diet Recommended Diet: Regular Diet Pending Studies Studies pending at discharge: yes List of pending studies: LAB WORK : CBC ON 01/29/17 Medical Emergencies . Who to Call and When: Medical Emergencies: If at any time you feel your situation is an emergency, please call 911 immediately. . Non-Emergent Contact Non-Emergency issues call your: Primary Care Provider . . "Provider Documentation" section prepared by Vidhi Kirkland. . VTE Core Measure Inpt VTE Proph given/why not?: Chris Najera, SCD's
--- NOTE | 2017-01-26 15:00 | Progress Note ---
Internal Med Progress Note Date of Service: Jan 26, 2017. Provider Documentation: SUBJECTIVE: feels much better today minimum pain on Rt lower abdomen no nausea , tolerating diet no fever or chills , no urinary symptom evaluated by ADVANCED DEVELOPER earlier recommend out pt follow up stable to be discharge home today OBJECTIVE: Vital Signs-as noted below Exam: General-no sign of distress Eyes-sclera non icteric ENT-NAd Lungs-CTA Heart-S1/S2 Abdomen-soft, minimum tenderness on rt lower quadrant , no rebound , active bowel sound Extremities-no lower ext edema Neuro-AAO x3 no focal deficit Lab data as noted below. ASSESSMENT & PLAN: Symptomatic anemia presented with weakness /dizzy spell HB 6.7 ; low MCV suggestive of Fe deficiency has been chronically anemia on Fe supplement S/p 1 unit of PRBC transfusion pt denies of any dark stool , no melena /denies of heavy /prolong period feels much better pt is asked to continued to continue to take Fe supplement repeat CBC with Next physician visit may benefit with Out pt Iron Transfusion Rt lower quadrant Pain : Symptom has resolved possibly from ruptured ovarian cyst CT abdomen /pelvis no evidence of appendicitis ADVANCED DEVELOPER eval requested recommend out pt follow up ASYMPTOMATIC PYURIA : Urine culture negative growth no indication for Abx tx DVT PROPHYLAXIS SCD and TEDS ambulate DISPOSITION Discharge home today Vital Signs: Date Time Temp Pulse Resp B/P (MAP) Pulse Ox O2 Delivery O2 Flow Rate FiO2 01/26/17 08:00 99 Room Air 01/26/17 07:51 36.8 70 16 97/61 (73) 99 Room Air 01/26/17 05:45 78 126/86 (99) 01/26/17 05:45 101 134/90 (105) 01/26/17 05:45 78 111/70 (84) 01/26/17 00:30 36.8 71 20 119/82 100 Room Air 01/26/17 00:30 36.8 71 20 119/82 100 01/25/17 23:52 81 18 106/61 98 Room Air 01/25/17 23:20 37.0 74 18 106/61 98 01/25/17 22:50 37.1 80 18 119/62 100 01/25/17 22:33 37.0 89 18 113/60 100 01/25/17 21:55 84 18 110/63 100 Room Air 6/17/17 18:59 36.8 104 18 102/59 99 Room Air Lab Results: Results Past 24 Hours Test 01/25/17 19:23 01/25/17 19:30 01/26/17 07:25 01/26/17 07:28 Range/Units White Blood Count 5.56 9.07 4.8-10.8 K/uL Red Blood Count 4.18 4.27 4.2-5.4 M/uL Hemoglobin 6.7 7.3 12.0-16.0 g/dL Hematocrit 24.1 25.8 37-47 % Mean Corpuscular Volume 57.7 60.4 80-100 fL Mean Corpuscular Hemoglobin 16.0 17.1 25-34 pg Mean Corpuscular Hemoglobin Concent 27.8 28.3 32-36 g/dl Platelet Count 200 172 130-400 K/uL RDW Standard Deviation 41.8 48.4 36.4-46.3 fL RDW Coefficient of Variation 19.7 22.2 11.5-14.5 % Neutrophils % (Manual) 72.2 % Lymphocytes % (Manual) 22.6 % Monocytes % (Manual) 5.2 % Neutrophils # (Manual) 4.01 1.4-6.5 K/uL Total Absolute Neutrophils 4.01 1.4-6.5 K/uL Lymphocytes # (Manual) 1.26 1.2-3.4 K/uL Total Absolute Lymphocytes 1.26 1.2-3.4 K/uL Monocytes # (Manual) 0.29 0.11-0.59 K/uL Giant Platelets 1+ Hypochromasia PRESENT Microcytosis PRESENT PRESENT Prothrombin Time 11.2 9.0-12.0 SECONDS Prothromb Time International Ratio 1.0 0.9-1.1 Activated Partial Thromboplast Time 26.8 21.0-31.0 SECONDS Partial Thromboplastin Ratio 1.0 Sodium Level 142 136-145 mmol/L Potassium Level 3.5 3.5-5.1 mmol/L Chloride Level 112 98-107 mmol/L Carbon Dioxide Level 21 21-32 mmol/L Anion Gap 9.0 3-11 mmol/L Blood Urea Nitrogen 8 7-18 mg/dl Creatinine 0.71 0.60-1.20 mg/dl Est Creatinine Clear Calc Drug Dose 105.4 ml/min Estimated GFR () 134.3 Estimated GFR (Non- 115.9 BUN/Creatinine Ratio 11.3 10-20 Random Glucose 85 70-99 mg/dl Calcium Level 8.2 8.5-10.1 mg/dl Magnesium Level 2.2 1.8-2.4 mg/dl Total Bilirubin 0.2 0.2-1 mg/dl Direct Bilirubin < 0.1 0-0.2 mg/dl Aspartate Amino Transf (AST/SGOT) 11 15-37 U/L Alanine Aminotransferase (ALT/SGPT) 20 12-78 U/L Alkaline Phosphatase 65 45-117 U/L Total Protein 7.2 6.4-8.2 gm/dl Albumin 3.5 3.4-5.0 gm/dl Lipase 127 73-393 U/L Urine Color YELLOW Urine Appearance CLOUDY CLEAR Urine pH 5.0 4.5-7.5 Urine Specific [place] 1.021 1.000-1.030 Urine Protein NEG NEG Urine Glucose (UA) NEG NEG Urine Ketones NEG NEG Urine Occult Blood NEG NEG Urine Nitrite NEG NEG Urine Bilirubin NEG NEG Urine Urobilinogen NEG NEG Urine Leukocyte Esterase MODERATE NEG Urine WBC (Auto) >30 0-5 /hpf Urine RBC (Auto) 0-4 0-4 /hpf Urine Hyaline Casts (Auto) 1-5 0-5 /lpf Urine Epithelial Cells (Auto) >30 0-5 /lpf Urine Bacteria (Auto) 2+ NEG Urine Pathogenic Casts 0 /lpf Urine Yeast (Auto) BUD W/ HYPHAE NONE PRSENT Urine Test NEG NEG Neutrophils (%) (Auto) 68.4 % Lymphocytes (%) (Auto) 22.2 % Monocytes (%) (Auto) 7.7 % Eosinophils (%) (Auto) 1.2 % Basophils (%) (Auto) 0.3 % Neutrophils # (Auto) 6.20 1.4-6.5 K/uL Lymphocytes # (Auto) 2.01 1.2-3.4 K/uL Monocytes # (Auto) 0.70 0.11-0.59 K/uL Eosinophils # (Auto) 0.11 0-0.5 K/uL Basophils # (Auto) 0.03 0-0.2 K/uL Immature Granulocyte % (Auto) 0.2 % Immature Granulocyte # (Auto) 0.02 0.00-0.02 K/uL Poikilocytosis PRESENT Anisocytosis PRESENT Absolute Reticulocyte Count 0.03 0.02-0.10 10^6/uL Percent Reticulocyte Count 0.6 0.5-2.0 % Iron Level 24 35-150 mcg/dl Total Iron Binding Capacity 350 250-450 mcg/dl Transferrin 267 200-360 mg/dl Transferrin % Saturation 6 15-50 % Ferritin 3.6 8.0-388.0 ng/ml Vitamin B12 Level 715 211-911 pg/mL Folate > 24.00 >5.38 ng/mL Test 01/26/17 12:14 Range/Units Hemoglobin 7.3 12.0-16.0 g/dL Hematocrit 25.5 37-47 % Microbiology Results 01/25/17 Urine Culture - Preliminary, Resulted PIN-POINT GROWTH PRESENT, REINCUBATING.
[2017-01-26 15:06] VITALS: BP 97/61; PULSE 70; TEMP 36.8; O2SAT 99
--- NOTE | 2017-01-26 15:08 | Discharge Summary ---
Discharge Summary Date of Service Jan 26, 2017. Discharge Summary Admission Date: Jan 25, 2017 at 23:08 Discharge Date: Jan 26, 2017 Discharge Disposition: Home Principal Diagnosis: RT SIDED RUPTURED OVARIAN CYST /SYMPTOMATIC ANEMIA Procedures: CT ABDOMEN /PELVIS : IMPRESSION: 1. Study is negative for appendicitis. 2. 3.3 cm right ovarian cyst with a small to moderate amount of free fluid within the pelvic cul-de-sac. 3. This may indicate a partial cyst rupture. 4. Fluid-filled partially effaced loop of terminal ileum adjacent to the cyst versus the less likely possibility of a distended uterine tube. 5. If symptoms persists, pelvic ultrasound would be of assistance to exclude any possibility of hydrosalpinx. PELVIC USG : IMPRESSION: 1. Thickened and heterogeneous endometrium measuring up to 2 cm. 6-8 week pelvic ultrasound follow-up is recommended to ensure resolution. 2. A 3.9 cm complex cyst within the right ovary. This favors a hemorrhagic cyst. This also bears watching on future examinations. 3. Small amount of pelvic free fluid. Consultations: DRAWER IN STITCH BONDING MACHINE Pending Studies/Follow-Up: SEE DISCHARGE INSTRUCTION Medication Reconciliation New Medications: Ferrous Sulfate (Ferrous Sulfate) 325 Mg Tab 325 MG PO TIDM for 30 Days, #90 TAB Continued Medications: Hydrocodone/Acetaminophen 5MG/325MG ([place] 5MG/325MG) Tab 1-2 TABLETS PO Q4 PRN for Pain, #20 TAB For Initial Treatment Referrals At Discharge Follow up Referrals: Physician Referral - 01/29/17 with Shanique BRIZUELA M.D. Admission Information HPI (per Admitting provider): DATE OF ADMISSION: 01/25/2017 PRIMARY CARE DOCTOR: Dr. Shanique Brizuela CHIEF COMPLAINT: Right flank pain. HISTORY OF PRESENT ILLNESS: Hx obtained from px and records. Medical history is significant for chronic iron deficiency anemia (baseline Hg 7 -8), mood disorder and ongoing tobacco abuse. Patient known to anemic for years now. Admits to erratic compliance with home iron prescription. Yesterday, the patient noted right lower quadrant pain, achy and some nausea. No vomiting. Good bowel movement. No fever, no chills, different from UTI symptoms. No black, no bloody stools. Usual menstrual patterns. Patient admits to some weakness with exertion for a few months now. Episodic lightheadedness as she is going to pass out. No cp, no sob. At the Emergency Room, hemoglobin was noted to be 6.7. Patient received one unit of packed RBC. MEDICAL HISTORY: As above. SURGERIES: Tonsillectomy, adenectomy, gynecologic procedures and bilateral tubal ligation. HOME MEDICATIONS: The patient on an antibiotic course for dental infection and Vicodin. ALLERGIES: No drug allergies. FAMILY HISTORY: Anemia, diabetes and hypertension. PERSONAL AND SOCIAL HISTORY: Half pack daily. No chronic intake of alcoholic beverages. Homemaker. REVIEW OF SYSTEMS: As per HPI. all other ROS negative Physical Exam (per Admitting): PHYSICAL EXAMINATION: GENERAL: Slightly anxious, in no acute distress, looks older for stated age VITAL SIGNS: Blood pressure was noted to be 110/60, pulse rate 84, RR 18, temperature 36.7 and sats 100 on room air. SKIN: Pallor. HEENT: Pale palpebral conjunctivae. Dry mucosa. NECK: No JVD. Supple CHEST: Clear to auscultation. HEART: Regular rate and rhythm. ABDOMEN: Tenderness in the right lower quadrant. RECTAL: Intact sphincter, yellow stool, heme negative. EXTREMITIES: No edema. no tenderness NEUROLOGIC: No gross focality. Hospital Course Symptomatic anemia presented with weakness /dizzy spell HB 6.7 ; low MCV suggestive of Fe deficiency has been chronically anemia on Fe supplement S/p 1 unit of PRBC transfusion pt denies of any dark stool , no melena /denies of heavy /prolong period feels much better pt is asked to continued to continue to take Fe supplement repeat CBC with Next physician visit may benefit with Out pt Iron Transfusion Rt lower quadrant Pain : Symptom has resolved possibly from ruptured ovarian cyst CT abdomen /pelvis no evidence of appendicitis DRAWER IN STITCH BONDING MACHINE eval requested recommend out pt follow up ASYMPTOMATIC PYURIA : Urine culture negative growth no indication for Abx tx DVT PROPHYLAXIS SCD and TEDS ambulate DISPOSITION Discharge home today Total time spent on discharge = 35 MINS This includes examination of the patient, discharge planning, medication reconciliation, and communication with other providers. Discharge Instructions DI: Medical v4 Discharge Instructions Date of Service Jan 26, 2017. Admission Reason for Admission: Symptomatic Anemia Discharge Discharge Diagnosis / Problem: RT SIDED RUPTURED OVARIAN CYST /SYMPTOMATIC ANEMIA Discharge Goals Goal(s): Improve disease control, Diagnostic testing, Therapeutic intervention Activity Recommendations Activity Limitations: resume your previous activity . Instructions / Follow-Up Instructions / Follow-Up HOSPITAL FOLLOW UP 01/29/2017 @ 1:[address] Shanique Brizuela MD General Internal Medicine [facility] LAB WORK : CBC ON 01/29/17 PLEASE FOLLOW UP WITH DRAWER IN STITCH BONDING MACHINE IN 2-3 WEEKS TAKE IRON SUPPLEMENT PRESCRIBED TAKE OVER THE COUNTER STOOL SOFTENER TO PREVENT CONSTIPATION WHILE TAKING IRON SUPPLEMENT Current Hospital Diet Patient's current hospital diet: Regular Diet Discharge Diet Recommended Diet: Regular Diet Pending Studies Studies pending at discharge: yes List of pending studies: LAB WORK : CBC ON 01/29/17 Medical Emergencies . Who to Call and When: Medical Emergencies: If at any time you feel your situation is an emergency, please call 911 immediately. . Non-Emergent Contact Non-Emergency issues call your: Primary Care Provider . . "Provider Documentation" section prepared by Vidhi Kirkland. . VTE Core Measure Inpt VTE Proph given/why not?: Chris Najera, SCD's Additional Copies To Shanique BRIZUELA M.D.
--- NOTE | 2017-01-26 15:40 | GYNECOLOGICAL CONSULTATION ---
DATE OF CONSULTATION: 01/26/2017 REASON FOR CONSULTATION: Right-sided pelvic pain and abnormal findings on ultrasound. HISTORY OF PRESENT ILLNESS: The patient is a 26-year-old 4, para 4 who was admitted to medicine on 01/25/2017 with right pelvic pain that began evening. Her pain progressively increased in intensity throughout Friday and Friday, was severe enough for her to come to the Emergency Department. The patient had some nausea, no vomiting. No fevers, chills. She is currently on antibiotics for a tooth infection. She admits that she has never had any pain like this in the past and was more concerned about appendicitis. In the Emergency Department, a CT scan was ordered and showed a negative study for appendicitis. There was a 3.3 cm right ovarian cyst with a small to moderate amount of free fluid within the pelvic cul-de-sac which may indicate partial cyst rupture. A pelvic ultrasound was then ordered which showed a thickened and heterogeneous endometrium measuring up to 2 cm and a 3.9 cm complex cyst within the right ovary which favored a hemorrhagic cyst. A small amount of pelvic free fluid was seen. PAST MEDICAL HISTORY: The patient denies any previous medical history. PAST SURGICAL HISTORY: She had a tonsillectomy, 4 C-sections with bilateral tubal ligation with the last one. MEDICATIONS: The patient denies any medications. ALLERGIES: No known drug allergies. SOCIAL HISTORY: She smokes half pack per day. She denies alcohol or drug use. She is a homemaker. GYNECOLOGIC HISTORY: Periods are regular every 25-28 days lasting 3-5 days. She denies that they are heavy. She denies clots or pelvic pain. She has never had any ovarian cysts in the past. She had 4 term pregnancies and 4 sections without complications. 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 REVIEW OF SYSTEMS: As per HPI. PHYSICAL EXAMINATION: VITAL SIGNS: Blood pressure is 97/61, heart rate of 70, respiration rate of 16, temperature of 36.8, pulse ox of 99% on room air. GENERAL: The patient is awake, alert, oriented x3. She is in no acute distress. HEART: Regular rate and rhythm. LUNGS: Clear to auscultation bilaterally. ABDOMEN: Mild tenderness in the right lower quadrant to palpation. No guarding or rebound tenderness noted. Bowel sounds present x4. EXTREMITIES: No clubbing, cyanosis or calf tenderness. LABORATORY DATA: White blood cell count is 9.07, hemoglobin is 7.3, hematocrit of 25.8, platelet count of 172. Sodium is 142, potassium 3.5, chloride 112, bicarbonate 21, BUN of 8, creatinine is 0.71, glucose of 85, calcium of 8.2, total bilirubin 0.2, direct bilirubin less than 0.1, AST 11, ALT 20, alkaline phosphatase 65, total protein 7.2, albumin 3.5, lipase 127. Her iron is 24, transferrin is 267, TIBC 350, ferritin is 3.6. PT 11.2, INR 1.0, PTT 26.8. Urine test is negative. IMAGING: As per HPI. ASSESSMENT: 1. A right ovarian hemorrhagic cyst with a thickened endometrium measuring 2.0 cm. 2. Symptomatic anemia. PLAN: Per medicine. She is being transfused to maintain her hemoglobin above 7. Anemia workup and iron supplement. For her ovarian cyst we will repeat her pelvic ultrasound at 6-8 weeks to ensure resolution. Currently, her pain is significantly improved. She is due for an annual exam and she states that she will schedule this in the outpatient setting as well. Thank you for the consult. If any further questions, feel free to page me.
[2017-01-30 01:09] LABS: IGA SERUM 127 mg/dL (81-463); TIS TRANS IGA 1 U/mL (<4)
== END 2017-01-26 16:10 | disposition home or self-care (01) | DRG 760 ==
LOC: C.EDB 18:57 → C.MS4W 23:08 → ENRESERV 23:41
PROVIDERS: ADMIT Hospitalist; ATTEND Hospitalist
DX: N83.201 Unspecified ovarian cyst, right side (principal); N39.0 Urinary tract infection, site not specified; D64.9 Anemia, unspecified; G43.909 Migraine, unspecified, not intractable, without status migrainosus; M54.6 Pain in thoracic spine; F17.210 Nicotine dependence, cigarettes, uncomplicated; K08.89 Other specified disorders of teeth and supporting structures; Z79.891 Long term (current) use of opiate analgesic; Z79.899 Other long term (current) drug therapy

== ENCOUNTER 2017-08-27 11:17 | Emergency (ER) | payer OTHER ==
[~2017-08-27] VITALS: Ht 157.5 cm; Wt 54.7 kg
[~2017-08-27 11:17] MED LIST changes: -AMOX875T PO; +FRRS300 PO; -HYDR-5688 PO; -PENI500T2 PO
[2017-08-27 11:19] VITALS: TEMP 37; Ht 157.5 cm; Wt 54.7 kg
--- NOTE | 2017-08-27 12:14 | EMERGENCY ROOM VISIT NOTE ---
History Report prepared by Chip: Nash Banda Under the Supervision of: Dr. Deepak Belle M.D. First contact with patient: 11:42 Chief Complaint: STD FEMALE Stated Complaint: STD/HERPES History of Present Illness The patient is a 26 year old female who presents to the Emergency Room with complaints of a possible STD infection. She has a past medical history of anemia. She and her boyfriend of 7 years recently broke up a couple of weeks ago. For the past two weeks, they have been intermittently having intercourse. Last night, the patient found out that her now ex-boyfriend had received oral sex from a woman diagnosed with oral herpes. After figuring out the dates and times of everything, she realized that she had had intercourse with him after he had a possible herpes contact. She denies any blisters, bleeding, or visualized herpes symptoms. She is very paranoid and is requesting further herpes testing. She notes that she is currently menstruating. Source of History: patient Onset: within the past two weeks Position: other () Symptom Intensity: Possible STD Quality: other (Possible herpes exposure) Timing: constant Note: She denies any abnormal vaginal bleeding or discharge. She also denies any visualized herpes-like symptoms. Review of Systems See HPI for pertinent positives & negatives. A total of 10 systems reviewed and were otherwise negative. Past Medical & Surgical Medical Problems: (1) Anemia (2) Chest wall injury (3) Chest wall injury (4) Migraine Unspecified W/O Intractable Migraine (5) Odontalgia (6) Pain, dental (7) Pyelonephritis (8) Symptomatic anemia (9) Syncope (10) Upper back pain Surgical Problems: (1) Prev Delivry W/ Or W/O Ment Antepart Cond Family History Diabetes mellitus Heart disease Hypertension Social History Smoking Status: Current Every Day Smoker Alcohol Use: none Drug Use: none Marital Status: in relationship Housing Status: lives with family Occupation Status: unemployed Current/Historical Medications Scheduled Ferrous Sulfate (Ferrous Sulfate), 325 MG PO TIDM Allergies Coded Allergies: No Known Allergies (Verified , NONE, 08/27/17) Physical Exam Vital Signs Date Time Temp Pulse Resp B/P (MAP) Pulse Ox O2 Delivery O2 Flow Rate FiO2 08/27/17 11:19 37.0 119 20 102/72 99 Room Air Physical Exam GENERAL: Patient is a healthy-appearing well-nourished female HEAD: Normocephalic atraumatic EYES: Ocular movements intact pupils equal and react to light OROPHARYNX mucous membranes are moist no exudates present no erythema or edema present NECK: Supple no nuchal rigidity CHEST: Good equal expansion LUNGS: Clear and equal to auscultation CARDIAC: Normal S1 and S2 ABDOMEN: Soft nontender no guarding BACK: No CVA tenderness PELVIC: Cervix has some slight bleeding present. There are no lesions present. No discharge. EXTREMITIES: No pain upon palpation normal muscle strength in all groups no clubbing cyanosis or edema NEURO: Patient is following commands and answering questions appropriately. Alert and oriented x3 Cranial Nerves 2-12 grossly intact Medical Decision & Procedures Laboratory Results Test 08/27/17 12:15 Date/Time Source Procedure Growth Status 08/27/17 12:15 Cervix Swab Trichomonas Preparation - Final Complete Labs reviewed by ED physician. ED Course 1142: Past medical records reviewed. The patient was evaluated in room C8. A complete history and physical examination was performed. 1230: Upon reexamination the patient is resting. I discussed results and treatment plan with the patient. She verbalizes agreement and understanding. The patient is ready for discharge. Medication Reconcilliation Current Medication List: was personally reviewed by me Blood Pressure Screening Patient's blood pressure: Normal blood pressure Blood pressure disposition: Did not require urgent referral Impression Primary Impression: Possible exposure to STD Scribe Attestation The scribe's documentation has been prepared under my direction and personally reviewed by me in its entirety. I confirm that the note above accurately reflects all work, treatment, procedures, and medical decision making performed by me. Departure Information Dispostion Home / Self-Care Referrals No Doctor, Assigned (PCP) Carloz Winslow MD Forms HOME CARE DOCUMENTATION FORM, IMPORTANT VISIT INFORMATION, WORK / SCHOOL INSTRUCTIONS Patient Instructions ED Herpes Simplex Virus Type 2, My [facility] Additional Instructions Follow up with DR Winslow's office Culture results are usually available in approx 48 hours You have been examined and treated today on an emergency basis only. This is not a substitute for, or an effort to provide, complete comprehensive medical care. It is impossible to recognize and treat all injuries or illnesses in a single emergency department visit. It is therefore important that you follow up closely with your PCP. Call as soon as possible for an appointment. Thank you for your time and consideration. I look forward to speaking with you again soon. Please don't hesitate to call us if you have any questions.
[2017-08-27 13:05] VITALS: BP 114/63; PULSE 85; O2SAT 98
== END 2017-08-27 13:06 | disposition home or self-care (01) ==
LOC: C.EDB 11:19 → C.EDC 13:06
DX: Z20.2 Contact with and (suspected) exposure to infections with a predominantly sexual mode of transmission (principal); F17.200 Nicotine dependence, unspecified, uncomplicated; Z83.3 Family history of diabetes mellitus; Z82.49 Family history of ischemic heart disease and other diseases of the circulatory system

== ENCOUNTER 2017-10-22 12:22 | Emergency (ER) | payer OTHER ==
[~2017-10-22] VITALS: Ht 157.5 cm; Wt 55.0 kg
[2017-10-22 12:25] VITALS: TEMP 36.8; Ht 157.5 cm; Wt 55.0 kg
[2017-10-22] MEDS ORDERED: HYDR-5688 PO (13:09)
[2017-10-22] MEDS ORDERED: CLC/300 PO (13:09)
--- NOTE | 2017-10-22 13:11 | EMERGENCY ROOM VISIT NOTE ---
ED Visit Note First contact with patient: 12:28 CHIEF COMPLAINT: Left lower dental pain times one day HISTORY OF PRESENT ILLNESS: Patient is a 27-year-old white female who presents to emergency department for evaluation of left lower dental pain. She reports that she has multiple bad teeth, and has an appointment with the oral surgeon, Dr. Moore, on 11/03 to have a complete maxillary and mandibular extraction. She was seen by her dentist, Dr. Yessy BROWN, about 3 weeks ago and was placed on a course of penicillin. She states that she took all but 4 tablets of the prescription of her symptoms improved. She notes that she began to feel pressure in the left lower jaw last evening, it steadily worsened throughout the evening. She tried Tylenol, ibuprofen and naproxen all without relief. It was difficult for her to sleep or eat due to the pain. She rates her pain a 7/ 10 presently. She did take the remaining 4 tablets of penicillin from the old prescription. She denies any drainage or discharge from the mouth. She tried calling her oral surgeon but was unable to get in any sooner and was sent to the emergency department. She denies any blood, pus or foul tasting fluid in her mouth. No difficulty breathing or swallowing. She denies fever. REVIEW OF SYSTEMS: Review of systems as per HPI. All other systems reviewed were negative. At least 6 systems reviewed. PMH: Electronic medical records are reviewed and summarized as above/below. See Problem List. SOCIAL HISTORY: Patient lives at home. Smoker. PHYSICAL EXAM: Vital Signs: Reviewed Nurse's notes. CONSTITUTIONAL: Patient is a well-appearing 27-year-old white female who is awake and alert and in no acute distress. Vital signs are stable. EARS: Tympanic membranes intact, not inflamed, have normal contour. External canals clear. MOUTH: Overall the patient has poor dentition. She is status post multiple extractions. There are multiple teeth with gross dental decay and obvious dental caries. The left lower molar in question is fractured, grossly carious, with exposed pulp. It is tender to percussion. There is slight swelling along the gumline although no focal abscess. Mucous membranes moist, no lesions, tongue and gums appear normal. THROAT: No pharyngeal injection, exudates, or tonsillar hypertrophy. Airway is patent. No trismus noted. FACE: No facial swelling is appreciated. No cellulitic changes. NECK: No lymphadenopathy . ED course: The patient was seen and evaluated as above. Her old records were reviewed. She has increased dental pain from a grossly carious tooth. There is no evidence for Valdo's angina, facial cellulitis or drainable abscess. She 'll be placed on antibiotics, will use Clindamycin as she was just on Penicillin , and was given a prescription for [place] for pain. She was strongly encouraged to the appointment with the oral surgeon for definitive care and management. She expressed understanding of this and was agreeable. Patient was reviewed in the [facility] Prescription Drug Monitoring Program, and there were no red flags noted. Medical Reconciliation: I attest that I have personally reviewed the patient's current medication list. Blood pressure screening: Patient was found to have normal blood pressure on screening and does not require follow-up. Problem List Medical Problems: (1) Anemia Status: Chronic (2) Chest wall injury Status: Resolved (3) Chest wall injury Status: Resolved (4) Migraine Unspecified W/O Intractable Migraine Status: Chronic (5) Odontalgia Status: Resolved (6) Pain, dental Status: Resolved (7) Periapical abscess Status: Resolved (8) Periapical abscess Status: Resolved (9) Periapical abscess Status: Resolved (10) Possible exposure to STD Status: Resolved (11) Pyelonephritis Status: Resolved (12) Ruptured ovarian cyst Status: Resolved (13) Severe anemia Status: Resolved (14) Symptomatic anemia Status: Resolved (15) Syncope Status: Resolved (16) Upper back pain Status: Resolved Surgical Problems: (1) Prev Delivry W/ Or W/O Ment Antepart Cond Status: Resolved Current/Historical Medications Scheduled Clindamycin HCl (Clindamycin HCl), 1 CAP PO TID Ferrous Sulfate (Ferrous Sulfate), 325 MG PO TIDM Scheduled PRN Hydrocodone/Acetaminophen 5MG/325MG ([place] 5MG/325MG), 1-2 TABLETS PO Q4 PRN for Pain Allergies Coded Allergies: No Known Allergies (Verified , NONE, 10/22/17) Vital Signs Date Time Temp Pulse Resp B/P (MAP) Pulse Ox O2 Delivery O2 Flow Rate FiO2 10/22/17 12:25 36.8 109 17 120/72 100 Room Air Departure Information Impression Primary Impression: Chronic dental pain Additional Impression: Pain due to dental caries Prescriptions Hydrocodone/Acetaminophen 5MG/325MG ([place] 5MG/325MG) Tab 1-2 TABLETS PO Q4 Y for Pain, #20 TAB For Initial Treatment Prov: Jasmyne Joseph PA 10/22/17 Clindamycin HCl (Clindamycin HCl) 300 Mg Cap 1 CAP PO TID for 10 Days, #30 CAP Prov: Jasmyne Joseph PA 10/22/17 Referrals No Doctor, Assigned (PCP) Patient Instructions [facility] Additional Instructions Clindamycin 300mg: Take one pill 3 times daily for 10 days for your dental infection. All antibiotics can cause diarrhea. If this occurs and you feel worse or it does not resolve in 1-2 days follow up with your doctor or return to the Emergency Department as this could be signs of serious underlying problems. Any medication can cause an allergic reaction, stop the pills immediately and return to the ER for rash, hives, breathing difficulties, or swelling. Ibuprofen(Motrin, Advil) may be used for fever or pain. Use 600mg every six hours as needed. Take with food. Avoid using more than 2400mg in a 24 hour period. Do not use 2400mg per day for more than three consecutive days without physician direction. Prolonged inappropriate use can lead to stomach upset or ulcers. (AND/OR) Acetaminophen(Tylenol) may be used for fever or pain. Use 1000mg every six hours as needed. Avoid using more than 4000mg in a 24 hour period. Hydrocodone/Acetaminophen ([place]) 5/325 mg: Take 1-2 pills every four hours for breakthrough pain. Avoid alcohol, operating machinery or dangerous equipment, working on ladders or roofs, DRIVING, or situations where being under the influence may be dangerous. It is recommended to use an [id number] stool softener such as Colace, 100mg twice daily while taking this medication to avoid constipation. Saltwater gargles after meals and before bedtime. Soft foods. Orajel/Anbesol/clove oil as needed for discomfort. Followup with your oral surgeon as scheduled for definitive management. You may also follow up with your primary care physician or dentist for pain/ care management until you can be seen by your surgeon. Problem Qualifiers
[2017-10-22 13:23] VITALS: BP 122/78; PULSE 72; O2SAT 99
== END 2017-10-22 13:26 | disposition home or self-care (01) ==
LOC: C.EDB 12:23 → C.EDD 13:26
DX: K08.89 Other specified disorders of teeth and supporting structures (principal); K02.9 Dental caries, unspecified; D64.9 Anemia, unspecified